=== PATIENT | male | born 1955 | race Caucasian/White ===

== ENCOUNTER 2018-09-05 23:46 | Emergency (ER) | payer OTHER ==
[~2018-09-05] VITALS: Ht 170.2 cm; Wt 81.7 kg
[2018-09-05] MEDS ORDERED: NAPROSYN500 MG (23:57)
[2018-09-06 00:58] LABS: ANION GAP 7 mmol/L (7-16); BUN 18 mg/dL (7-18); CALCIUM 9.2 mg/dL (8.5-10.1); CHLORIDE 102 mmol/L (98-107); CO2 28 mmol/L (21-32); CREATININE 1.2 mg/dL (0.6-1.3); GLUCOSE 96 mg/dL (70-99); SODIUM 137 mmol/L (136-145)
[2018-09-06 01:05] LABS: ALBUMIN 4.2 g/dL (3.4-5.0); ALKALINE PHOSPHATASE 72 U/L (46-116); HEMATOCRIT 40.7 % (42.0-52.0); HEMOGLOBIN 13.2 gm/dL (14.0-18.0); MCH 29.6 pg (26.0-34.0); MCHC 32.5 g/dL (28.0-37.0); MCV 91.1 fL (80.0-100.0); MPV 9.1 fl. (7.2-11.1); NUCLEATED RBCS 0 /100WBC; PLATELET COUNT* 249 thou/uL (150-400); RBC 4.46 mil/uL (4.50-6.00); RDW-CV 13.4 % (10.5-14.5); SGOT 18 U/L (15-37); SGPT 20 U/L (30-65); TOTAL BILIRUBIN 0.5 mg/dL (<0.1-1.0); TOTAL PROTEIN 7.4 g/dL (6.4-8.2); TROPONIN-I LEVEL <0.06 ng/mL (<0.06); WBC 16.9 thou/uL (4.0-11.0)
[2018-09-06 01:11] LABS: ABSOLUTE BASOPHILS 0.3 thou/uL (0.0-0.2); ABSOLUTE EOSINOPHILS 0.3 thou/uL (0.0-0.7); ABSOLUTE LYMPHOCYTES 2.2 thou/uL (0.8-5.3); ABSOLUTE MONOCYTES 0.7 thou/uL (0.0-1.2); ABSOLUTE NEUTROPHILS 13.4 thou/uL (1.6-8.1)
[2018-09-06 01:12] LABS: PLATELET ESTIMATE ADEQUATE; TOXIC GRANULATION 1+
[2018-09-06 01:13] LABS: APTT 25.6 Seconds (25.0-31.3); INR 1.1; PROTIME 11.1 Seconds (9.20-11.50)
[2018-09-06 02:17] VITALS: BP 132/84
--- NOTE | 2018-09-07 11:34 | EKG ---
[place] [address] ELECTROCARDIOGRAM REPORT Name: ANNAMARIE THOMAS Room: [facility]#: [id number] Admission: 09/05/18 Attend Phys: Discharge: 09/06/18 Date of : 57 Report #: [id number] THIS REPORT FOR: //name// [facility] ED Test Date: 2018-09-06 Test Time: 00:02:31 Pat Name: ANNAMARIE THOMAS Department: Room: Gender: M Sox Analyst: Skyler ARANDA : 1955 Requested By: Gisella Arguello Order Number: [id number] MD: Manan Arnold Measurements Intervals [place] Rate: 61 P: 40 CT: 213 QRS: 12 QRSD: 95 T: 25 QT: 410 QTc: 413 Interpretive Statements Sinus rhythm Borderline prolonged CT interval Low voltage, extremity leads No previous ECG available for comparison Electronically Signed On 09-07-2018 11:34:15 LARYNGOLOGIST by Manan Arnold [email or web address] <ELECTRONICALLY SIGNED> By: Manan Arnold MD, [facility] 09/07/18 1134 0002 0002 Manan Arnold MD, FACC /EPI
== END 2018-09-06 02:17 | disposition home or self-care (01) ==
LOC: M.ERS 23:46
PROVIDERS: Personal Emergency Response Attendant
DX: I16.0 Hypertensive urgency (principal)